=== PATIENT | female | born 1985 | race Caucasian/White ===

== ENCOUNTER → 2020-09-07 | Outpatient (CLI) | payer OTHER | END | disposition home or self-care (01) | LOC: PPH VACUNA | DX: Z23 Encounter for immunization (principal) ==

== ENCOUNTER 2021-05-03 14:00 | Outpatient (CLI) | payer OTHER | END 2021-05-03 15:00 | disposition home or self-care (01) | LOC: ASH CLINIC 14:00 | DX: U07.1 COVID-19 (principal); Z23 Encounter for immunization ==

== ENCOUNTER 2022-04-09 09:17 | Outpatient (CLI) | payer OTHER | END 2022-04-09 10:09 | disposition home or self-care (01) | LOC: NST 09:17 | PROVIDERS: ATTEND Obstetrics & Gynecology Maternal & Fetal Medicine | DX: Z34.82 Encounter for supervision of other normal pregnancy, second trimester (principal) ==

== ENCOUNTER 2022-07-03 08:21 | Outpatient (CLI) | payer OTHER | END 2022-07-03 09:26 | disposition home or self-care (01) | LOC: NST 08:21 | PROVIDERS: ATTEND Obstetrics & Gynecology Maternal & Fetal Medicine | DX: Z34.83 Encounter for supervision of other normal pregnancy, third trimester (principal) ==

== ENCOUNTER 2022-07-06 10:01 | Outpatient (CLI) | payer OTHER ==
[2022-07-06] MEDS ORDERED: PRENATAL TABLE1 EAC4 PO (22:50)
== END 2022-07-06 10:51 | disposition home or self-care (01) ==
LOC: NST 10:01
PROVIDERS: ATTEND Obstetrics & Gynecology
DX: Z34.83 Encounter for supervision of other normal pregnancy, third trimester (principal)

== ENCOUNTER 2022-07-06 21:59 | Inpatient (IN) | payer OTHER ==
[~2022-07-06] VITALS: Ht 165.1 cm; Wt 72.6 kg
[2022-07-06] MEDS ORDERED: PRENATAL TABLE1 EAC4 PO (22:50)
== END 2022-07-08 12:20 | disposition home or self-care (01) | DRG 807 ==
LOC: LDR 21:59 → OB/GYN 07-07 02:02 → LDR 07-07 11:35 → OB/GYN 07-08 12:20
PROVIDERS: ADMIT Obstetrics & Gynecology Maternal & Fetal Medicine; ATTEND Obstetrics & Gynecology Maternal & Fetal Medicine
PROC: 4A1HXCZ Monitoring of Products of Conception, Cardiac Rate, External Approach (ICD-10-PCS; 2022-07-06)
PROC: 10E0XZZ Delivery of Products of Conception, External Approach (ICD-10-PCS; principal; 2022-07-07)
PROC: 0W8NXZZ Division of Female Perineum, External Approach (ICD-10-PCS; 2022-07-07)
DX: O80 Encounter for full-term uncomplicated delivery (principal); Z37.0 Single live birth; Z3A.39 39 weeks gestation of pregnancy; Z20.822 Contact with and (suspected) exposure to COVID-19